=== PATIENT | male | born 1955 | race American Indian/Alaskan Native ===

== ENCOUNTER 2021-03-25 13:20 | Emergency (ER) | payer MEDICARE ==
[2021-03-25 15:40] VITALS: BP 184/80
[2021-03-25 17:05] LABS: Albumin 3.2 g/dL (3.9-5); Calcium 9.3 mg/dL (8.4-10.2)
== END 2021-03-25 15:36 | disposition left against medical advice (07) ==
LOC: ED 13:20
DX: Z00.00 Encounter for general adult medical examination without abnormal findings (principal); Z99.2 Dependence on renal dialysis; Z53.21 Procedure and treatment not carried out due to patient leaving prior to being seen by health care provider
CPT/HCPCS: 36415; 80048; 80053

== ENCOUNTER 2021-03-26 07:14 | Emergency (ER) | payer MEDICARE ==
--- NOTE | 2021-03-26 07:25 | Event Note ---
ED Screening Note ED Screening Note: Here for HD Last one Sat Usually goes M/W/F From [place] town he states This initial assessment/diagnostic orders/clinical plan/treatment(s) is/are subject to change based on patients health status, clinical progression and re- assessment by fellow clinical providers in the ED. Further treatment and workup at subsequent clinical providers discretion. Patient/guardian urged not to elope from the ED as their condition may be serious if not clinically assessed and managed. Initial orders include: labs ?HD
[2021-03-26 07:26] VITALS: BP 194/95
[2021-03-26 07:53] LABS: Hematocrit 29.3 % (35.5-45.6); Hemoglobin 9.6 gm/dl (11.8-15.2); Mean Corpuscular HGB Conc 33 % (32-34); Mean Corpuscular Volume 88 fl (84-94); Platelet Count 305 K/mm3 (140-440); Red Blood Count 3.33 M/mm3 (3.65-5.03); Red Cell Distribution Width 18.1 % (13.2-15.2)
[2021-03-26 08:12] LABS: Calcium 9.1 mg/dL (8.4-10.2)
--- NOTE | 2021-03-26 08:29 | Emergency Department Report ---
ED Medical Clearance HPI - General Chief complaint: Medical Clearance Stated complaint: DIALYSIS Time Seen by Provider: 03/26/21 07:24 Source: patient Mode of arrival: Ambulatory - History of Present Illness Initial comments: 65 yo AA male comes to ER for HD. States he is from out of town and last HD Wednesday. No cp NO sob Ambulatory and in nad on exam. plan: evaluate for emergent HD MD Complaint: medical clearance request Allergies/Adverse reactions: Allergies Allergy/AdvReac Type Severity Reaction Status Date / Time No Known Allergies Allergy Unverified 03/25/21 15:36 ED Review of Systems ROS: Stated complaint: DIALYSIS Other details as noted in HPI Comment: All other systems reviewed and negative ED Past Medical Hx - Past Medical History Previous Medical History?: Yes Hx Hypertension: Yes Hx Congestive Heart Failure: Yes Hx Diabetes: Yes Hx Renal Disease: Yes (Dialysis M, W, F) - Surgical History Past Surgical History?: Yes - Family History Family history: no significant - Social History Smoking Status: Never Smoker Substance Use Type: None ED Physical Exam - General Limitations: No Limitations General appearance: alert, in no apparent distress - Head Head exam: Present: atraumatic, normocephalic - Eye Eye exam: Present: normal appearance - ENT ENT exam: Present: mucous membranes moist - Neck Neck exam: Present: normal inspection - Respiratory Respiratory exam: Present: normal lung sounds bilaterally. Absent: respiratory distress - Cardiovascular Cardiovascular Exam: Present: regular rate, normal rhythm. Absent: systolic murmur, diastolic murmur, rubs, gallop - GI/Abdominal GI/Abdominal exam: Present: soft, normal bowel sounds - Rectal Rectal exam: Present: deferred - Extremities Exam Extremities exam: Present: normal inspection - Back Exam Back exam: Present: normal inspection - Neurological Exam Neurological exam: Present: alert, oriented X3 - Psychiatric Psychiatric exam: Present: normal affect, normal mood - Skin Skin exam: Present: warm, dry, intact, normal color. Absent: rash ED Course Vital Signs 03/26/21 07:25 Temperature 98.9 F Pulse Rate 83 Respiratory 18 Rate Blood Pressure 194/95 [Right] O2 Sat by Pulse 94 Oximetry ED Medical Decision Making - Lab Data Result diagrams: 03/26/21 07:29 03/26/21 07:29 - Medical Decision Making Lab Results 03/26/21 03/26/21 Range/Units 07:29 07:29 WBC 6.8 (4.5-11.0) K/mm3 RBC 3.33 L (3.65-5.03) M/mm3 Hgb 9.6 L (11.8-15.2) gm/dl Hct 29.3 L (35.5-45.6) % MCV 88 (84-94) fl MCH 29 (28-32) pg MCHC 33 (32-34) % RDW 18.1 H (13.2-15.2) % Plt Count 305 (140-440) K/mm3 Sodium 136 L (137-145) mmol/L Potassium 4.4 (3.6-5.0) mmol/L Chloride 100.3 (98-107) mmol/L Carbon Dioxide 23 (22-30) mmol/L Anion Gap 17 mmol/L BUN 19 (9-20) mg/dL Creatinine 4.6 H (0.8-1.3) mg/dL Estimated GFR 16 ml/min BUN/Creatinine Ratio 4 % Glucose 63 L (75-100) mg/dL Calcium 9.1 (8.4-10.2) mg/dL Phosphorus 3.50 (2.5-4.5) mg/dL Vital Signs 03/26/21 07:25 Temperature 98.9 F Pulse Rate 83 Respiratory 18 Rate Blood Pressure 194/95 [Right] O2 Sat by Pulse 94 Oximetry labs noted nephrology consulted- no need for emergent HD pt dc with outpt follow up pt verbalizes understanding of dc plan of care and need to see MD in the office for HD. - Differential Diagnosis ro need for emergent HD ED Disposition Clinical Impression: Dialysis patient Disposition: DC-01 TO HOME OR SELFCARE Is pt being admited?: No Does the pt Need Aspirin: No Condition: Stable Instructions: Dialysis Additional Instructions: follow up with MD in office referral below Referrals: PRIMARY MD TRINITY [Primary Care Provider] - 3-5 Days ADELAIDA MCADAMS MD [Staff Physician] - 3-5 Days Time of Disposition: 08:29
== END 2021-03-26 08:38 | disposition home or self-care (01) ==
LOC: ED 07:14
DX: E11.22 Type 2 diabetes mellitus with diabetic chronic kidney disease (principal); I13.0 Hypertensive heart and chronic kidney disease with heart failure and stage 1 through stage 4 chronic kidney disease, or unspecified chronic kidney disease; N18.9 Chronic kidney disease, unspecified; I50.9 Heart failure, unspecified; Z99.2 Dependence on renal dialysis
CPT/HCPCS: 36415; 80048; 83880; 84100; 85027